=== PATIENT | male | born 1970 | race Hispanic/Latino ===

== ENCOUNTER 2022-02-26 12:42 | Emergency (ER) | payer SELFPAY ==
[2022-02-26] MEDS ORDERED: Bupivacaine PF 0.5% 30 ML VIAL ONE ×2 (13:21→13:22)
[2022-02-26] MEDS ORDERED: Boostrix 0.5 ML (Tdap) VIAL ONE (13:23)
[2022-02-26] MEDS ORDERED: Lidocaine 1% (PF) 30 ML VIAL ONE (13:24)
== END 2022-02-26 14:03 | disposition home or self-care (01) ==
LOC: CSHERS 12:42
DX: S60.451A Superficial foreign body of left index finger, initial encounter (principal); W29.4XXA Contact with nail gun, initial encounter; Z23 Encounter for immunization
CPT/HCPCS: 64450; 90471; 90715; J2001; S0020